=== PATIENT | male | born 1950 | race Caucasian/White ===

== ENCOUNTER 2024-01-09 02:42 | Outpatient (REF) | payer MEDICARE, SELFPAY ==
[2024-01-09 03:13] LABS: Troponin I High Sensitivity 9.7 pg/mL (4.0-76.1)
== END 2024-01-09 02:43 | disposition home or self-care (01) ==
LOC: LAB 02:42
PROVIDERS: PCP Internal Medicine; Visit Provider Internal Medicine
DX: D64.9 Anemia, unspecified (principal)
CPT/HCPCS: 36415; 84484